=== PATIENT | female | born 1965 | race Caucasian/White ===

== ENCOUNTER → 2019-08-25 | Outpatient (CLI) | payer MEDICARE ==
--- NOTE | 2019-08-25 11:02 | Diagnostic Imaging Report ---
Left ankle at 1049 hours. INDICATION: Ankle pain. 3 views were obtained. There are no prior studies available for comparison. FINDINGS: There is no fracture, dislocation or acute bony abnormality evident. Ankle mortise is not widened and the talar dome is smooth. The soft tissues are unremarkable. IMPRESSION: There is no evidence for an acute bony abnormality. Dictated by: Dictated on workstation # [id number]
[2019-08-25 11:46] LABS: CREATININE SERUM 1.24 MG/DL (0.60-1.30); POTASSIUM 4.2 MMOL/L (3.6-5.0)
[2019-08-25 11:47] LABS: ALBUMIN 3.9 GM/DL (3.2-4.5); BILIRUBIN,TOTAL 0.3 MG/DL (0.1-1.0); TOTAL PROTEIN 6.9 GM/DL (6.4-8.2)
== END ==
LOC: LAB FS 10:42
PROVIDERS: ATTEND Family Medicine
DX: E03.9 Hypothyroidism, unspecified (principal); R41.3 Other amnesia; F33.9 Major depressive disorder, recurrent, unspecified; M25.572 Pain in left ankle and joints of left foot
CPT/HCPCS: 36415; 73610; 80053; 82607; 84443

== ENCOUNTER → 2020-02-14 | Outpatient (CLI) | payer MEDICARE, MEDICAID ==
[2020-02-14 11:06] LABS: BASOPHILS % (AUTO) 0 % (0-10); EOSINOPHILS % (AUTO) 1 % (0-10); HEMATOCRIT 35 % (35-52); HEMOGLOBIN 11.6 G/DL (11.5-16.0); LYMPHOCYTES # (AUTO) 1.9 X 10^3 (1.0-4.0); LYMPHOCYTES % (AUTO) 33 % (12-44); MEAN CORPUSCULAR HEMOGLOBIN 33 PG (25-34); MEAN CORPUSCULAR HGB CONC 33 G/DL (32-36); MEAN CORPUSCULAR VOLUME 98 FL (80-99); MONOCYTES # (AUTO) 0.4 X 10^3 (0.0-1.0); MONOCYTES % (AUTO) 7 % (0-12); NEUTROPHILS # (AUTO) 3.4 X 10^3 (1.8-7.8); NEUTROPHILS % (AUTO) 59 % (42-75); PLATELET COUNT 168 10^3/uL (130-400); RED CELL DISTRIBUTION WIDTH 11.9 % (10.0-14.5); WHITE BLOOD COUNT 5.8 10^3/uL (4.3-11.0)
[2020-02-14 11:26] LABS: ALBUMIN 3.8 GM/DL (3.2-4.5); BILIRUBIN,TOTAL 0.3 MG/DL (0.1-1.0); CALCIUM 9.2 MG/DL (8.5-10.1); CREATININE SERUM 1.17 MG/DL (0.60-1.30); POTASSIUM 4.1 MMOL/L (3.6-5.0); TOTAL PROTEIN 6.6 GM/DL (6.4-8.2)
== END ==
LOC: LAB FS 10:20
PROVIDERS: ATTEND Family Medicine
DX: G43.909 Migraine, unspecified, not intractable, without status migrainosus (principal); M79.2 Neuralgia and neuritis, unspecified
CPT/HCPCS: 36415; 80053; 82607; 84443; 85025

== ENCOUNTER → 2020-06-26 | Outpatient (CLI) | payer MEDICARE, MEDICAID | LOC: LAB FS 09:48 | PROVIDERS: ATTEND Family Medicine | DX: E03.9 Hypothyroidism, unspecified (principal); E53.8 Deficiency of other specified B group vitamins | CPT/HCPCS: 36415; 82607; 84443 ==

== ENCOUNTER 2020-10-14 09:43 | Emergency (ER) | payer MEDICARE, MEDICAID ==
[~2020-10-14] VITALS: Ht 157.4 cm; Wt 59.0 kg
[2020-10-14] MEDS ORDERED: KETOROLAC 30 MG/ML VIAL IVP STA (10:08)
[2020-10-14] MEDS ORDERED: LORazepam INJ 2 MG/ML (ATIVAN) VIAL IVP STA (10:08)
[2020-10-14] MEDS ORDERED: ORPHENADRINE 60 MG/2 ML (NORFLEX) AMP (ED ONLY) IVP STA (10:08)
[2020-10-14 10:10] LABS: HEMATOCRIT 37 % (35-52); HEMOGLOBIN 12.5 G/DL (11.5-16.0); MEAN CORPUSCULAR HEMOGLOBIN 32 PG (25-34); MEAN CORPUSCULAR VOLUME 95 FL (80-99); WHITE BLOOD COUNT 3.9 10^3/uL (4.3-11.0)
[2020-10-14 10:11] LABS: BASOPHILS % (AUTO) 1 % (0-10); EOSINOPHILS # (AUTO) 0.2 10^3/uL (0.0-0.3); EOSINOPHILS % (AUTO) 4 % (0-10); LYMPHOCYTES % (AUTO) 36 % (12-44); MEAN CORPUSCULAR HGB CONC 34 G/DL (32-36); MEAN PLATELET VOLUME 10.3 FL (7.4-10.4); MONOCYTES # (AUTO) 0.3 X 10^3 (0.0-1.0); MONOCYTES % (AUTO) 8 % (0-12); NEUTROPHILS % (AUTO) 51 % (42-75); PLATELET COUNT 233 10^3/uL (130-400)
[2020-10-14 10:12] LABS: LYMPHOCYTES # (AUTO) 1.4 X 10^3 (1.0-4.0)
--- NOTE | 2020-10-14 10:17 | ED General ---
General Chief Complaint: Chest Pain Stated Complaint: CHEST PAIN; SOB Source of Information: Patient History of Present Illness Date Seen by Provider: Oct 14, 2020 Time Seen by Provider: 09:44 Initial Comments 55 yo female presenting to ED with complaint of pressure in chest that has been mostly constant over the last several days as well as pain, burning and itching in left thumb and arm with rash. Her friend and significant other this last week and she has been under extra stress with that. She was staying with him and was kicked out of the shack he was living in after he . She is a very anxious and emotional person and has been more distraught since he . Over the weekend her symptoms have been worse. She had gone to Dr. Mcmillan's office today and one of the nurses have told her that it looked like shingles on her thumb and forearm. Because of her pressure and pain in her chest she was advised to come to the emergency department. She denies any known cardiac history. She cannot say if there is anything that makes her pain and pressure worse. She states it feels similar to needing to burp. She has had some nausea as well. She has been more anxious and upset. She reports that she smokes marijuana to help with pain and migraine headaches and Dr. Mcmillan has told her that she will not prescribe anxiety and pain medication until she has a clean UA. Allergies and Home Medications Allergies Coded Allergies: loratadine (Verified Allergy, Unknown, 10/14/20) Home Medications Azithromycin 250 Mg Tablet, 250 MG PO UD TAKE 2 TABLETS ON DAY ONE THEN TAKE 1 TABLET DAILY FOR FOUR MORE DAYS Prescribed by: BO MENDOZA on 10/14/20 1133 Clonazepam 1 Mg Tablet, 1 MG PO Q8H PRN for ANXIETY Prescribed by: BO ROLDANRT on 10/14/20 1134 Hydrocodone/Acetaminophen 1 Each Tablet, 1 TAB PO Q6H PRN for PAIN-SEVERE (8-10) Prescribed by: BO MENDOZA on 10/14/20 1134 Promethazine HCl 25 Mg Tablet, 12.5 MG PO Q8H PRN for NAUSEA/VOMITING Prescribed by: BO ROLDANRT on 10/14/20 1133 Valacyclovir HCl 1,000 Mg Tablet, 1,000 MG PO Q8H Prescribed by: BO MENDOZA on 10/14/20 1133 Patient Home Medication List Home Medication List Reviewed: Yes Review of Systems Review of Systems Constitutional: No chills, No fever; malaise EENTM: no symptoms reported Respiratory: cough (dry, non productive), short of breath Cardiovascular: chest pain (pressure in chest that has been almost constant and similar to sensation of needing to burp) Gastrointestinal: diarrhea (chronic loose stools since having gallbladder removed), nausea; No vomiting Genitourinary: no symptoms reported Musculoskeletal: other (left arm pain from thumb and index finger up her arm where she has vesicular erythematous rash) Skin: see HPI, rash (erythematous, vesicular rash from her left thumb and index finger running up her forearm and upper arm) Psychiatric/Neurological: Anxiety Past Gbidjrz-Fzvmud-Eebmww Hx Past Med/Social Hx: Reviewed Nursing Past Med/Soc Hx Past Medical History Surgeries: Yes Gallbladder Respiratory: Yes Asthma Neurological: Yes Headaches /Migraines Psychosocial: Yes Anxiety, Depression Physical Exam Vital Signs Vital Signs - First Documented Capillary Refill : Less Than 3 Seconds Height, Weight, BMI Height: '" Weight: lbs. oz. kg; BMI Method: General Appearance: Anxious HEENT: PERRL/EOMI Neck: Full Range of Motion, Normal Inspection, Non Tender, Supple Respiratory: Chest Non Tender, No Accessory Muscle Use, No Respiratory Distress, Decreased Breath Sounds (with poor effort) Cardiovascular: Regular Rate, Rhythm, No Murmur, Normal Peripheral Pulses Gastrointestinal: Normal Bowel Sounds, No Pulsatile Mass, Non Tender, Soft Extremity: Normal Capillary Refill, No Pedal Edema, Other (painful red vesicular rash on left arm from thumb and index finger spreading up forearm and upper arm) Neurologic/Psychiatric: Alert, Oriented x3 Skin: Warm/Dry, Rash (erythematous, vesicular rash on left thumb and index finger, forearm, upper arm. It is painful to touch and also somewhat pruritic.) Progress/Results/Core Measures Suspected Sepsis SIRS Temperature: Pulse: Respiratory Rate: Laboratory Tests 10/14/20 09:55: White Blood Count 3.9L Blood Pressure / Mean: Laboratory Tests 10/14/20 09:55: Creatinine 1.20, INR Comment 0.9, Platelet Count 233, Total Bilirubin 0.4 Results/Orders Lab Results Laboratory Tests Test 10/14/20 09:55 10/14/20 10:45 Range/Units White Blood Count 3.9 L 4.3-11.0 10^3/uL Red Blood Count 3.91 L 4.35-5.85 10^6/uL Hemoglobin 12.5 11.5-16.0 G/DL Hematocrit 37 35-52 % Mean Corpuscular Volume 95 80-99 FL Mean Corpuscular Hemoglobin 32 25-34 PG Mean Corpuscular Hemoglobin Concent 34 32-36 G/DL Red Cell Distribution Width 12.5 10.0-14.5 % Platelet Count 233 130-400 10^3/uL Mean Platelet Volume 10.3 7.4-10.4 FL Immature Granulocyte % (Auto) 0 % Neutrophils (%) (Auto) 51 42-75 % Lymphocytes (%) (Auto) 36 12-44 % Monocytes (%) (Auto) 8 0-12 % Eosinophils (%) (Auto) 4 0-10 % Basophils (%) (Auto) 1 0-10 % Neutrophils # (Auto) 2.0 1.8-7.8 X 10^3 Lymphocytes # (Auto) 1.4 1.0-4.0 X 10^3 Monocytes # (Auto) 0.3 0.0-1.0 X 10^3 Eosinophils # (Auto) 0.2 0.0-0.3 10^3/uL Basophils # (Auto) 0.0 0.0-0.1 10^3/uL Immature Granulocyte # (Auto) 0.0 0.0-0.1 10^3/uL Prothrombin Time 12.8 12.2-14.7 SEC INR Comment 0.9 0.8-1.4 Activated Partial Thromboplast Time 28 24-35 SEC Sodium Level 140 135-145 MMOL/L Potassium Level 3.5 L 3.6-5.0 MMOL/L Chloride Level 109 H 98-107 MMOL/L Carbon Dioxide Level 19 L 21-32 MMOL/L Anion Gap 12 5-14 MMOL/L Blood Urea Nitrogen 16 7-18 MG/DL Creatinine 1.20 0.60-1.30 MG/DL Estimat Glomerular Filtration Rate 46 BUN/Creatinine Ratio 13 Glucose Level 133 H 70-105 MG/DL Calcium Level 9.6 8.5-10.1 MG/DL Corrected Calcium 9.8 8.5-10.1 MG/DL Magnesium Level 2.0 1.6-2.4 MG/DL Total Bilirubin 0.4 0.1-1.0 MG/DL Aspartate Amino Transf (AST/SGOT) 17 5-34 U/L Alanine Aminotransferase (ALT/SGPT) 11 0-55 U/L Alkaline Phosphatase 68 40-136 U/L Troponin I < 0.30 <0.30 NG/ML Pro-B-Type Natriuretic Peptide 222.6 H <75.0 PG/ML Total Protein 7.3 6.4-8.2 GM/DL Albumin 3.8 3.2-4.5 GM/DL Urine Color YELLOW Urine Clarity CLOUDY Urine pH 6.0 5-9 Urine Specific [place] >=1.030 1.016-1.022 Urine Protein NEGATIVE NEGATIVE Urine Glucose (UA) NEGATIVE NEGATIVE Urine Ketones NEGATIVE NEGATIVE Urine Nitrite NEGATIVE NEGATIVE Urine Bilirubin NEGATIVE NEGATIVE Urine Urobilinogen 2.0 < = 1.0 MG/DL Urine Leukocyte Esterase NEGATIVE NEGATIVE Urine RBC (Auto) NEGATIVE NEGATIVE Urine RBC NONE /HPF Urine WBC 0-2 /HPF Urine Squamous Epithelial Cells 25-50 H /HPF Urine Crystals NONE /LPF Urine Bacteria MODERATE H /HPF Urine Casts NONE /LPF Urine Mucus NEGATIVE /LPF Urine Culture Indicated NO Urine Opiates Screen NEGATIVE NEGATIVE Urine Oxycodone Screen NEGATIVE NEGATIVE Urine Methadone Screen NEGATIVE NEGATIVE Urine Propoxyphene Screen NEGATIVE NEGATIVE Urine Barbiturates Screen NEGATIVE NEGATIVE Ur Tricyclic Antidepressants Screen NEGATIVE NEGATIVE Urine Phencyclidine Screen NEGATIVE NEGATIVE Urine Amphetamines Screen NEGATIVE NEGATIVE Urine Methamphetamines Screen NEGATIVE NEGATIVE Urine Benzodiazepines Screen POSITIVE H NEGATIVE Urine Cocaine Screen NEGATIVE NEGATIVE Urine Cannabinoids Screen POSITIVE H NEGATIVE My Orders Orders - BO MENDOZA MD Ekg Tracing (10/14/20 09:46) Cbc With Automated Diff (10/14/20:47) Magnesium (10/14/20 09:47) Chest 1 View Ap/Pa Only (10/14/20 09:47) Comprehensive Metabolic Panel (10/14/20:47) Protime With Inr (10/14/20:47) Partial Thromboplastin Time (10/14/20:47) O2 (10/14/20:47) Monitor-Rhythm Ecg Trace Only (10/14/20:47) Ed Iv/Invasive Line Start (10/14/20 09:47) Troponin I Fs (10/14/20 09:47) Probnp Fs (10/14/20 09:47) Lorazepam Injection (Ativan Injection) (10/14/20 10:08) Ketorolac Injection (Toradol Injection) (10/14/20 10:08) Orphenadrine Inj (Ed Only) (Norflex Inje (10/14/20 10:08) Ua Culture If Indicated (10/14/20 10:17) Drug Screen Stat (Urine) (10/14/20 10:17) Hydrocodone/Apap 5/325 Tablet (Lortab 5 (10/14/20 11:22) Ondansetron Oral Dissolve Tab (Zofran (10/14/20 11:22) Vital Signs/I&O 10/14/20 10/14/20 10/14/20 09:46 09:46 11:37 Temp 36.6 36.6 Pulse 88 72 Resp 10 16 B/P (MAP) 132/77 (95) 133/75 (95) Pulse Ox 99 98 O2 Delivery Room Air Room Air Room Air Capillary Refill : Less Than 3 Seconds Progress Note #1: Progress Note Obtain electrocardiogram since she is complaining of chest pain. Placed on telemetry monitoring to evaluate her cardiac rhythm and monitor while in the emergency department for arrhythmias or ST elevation or ectopy. Check labs with chest x-ray as well as urinalysis and urine drug screen since patient reports that the people that she was hanging around with were using methamphetamines, but she denies using anything but marijuana for over 10 years. Initial vital signs all appear stable without any significant abnormality. She is in a sinus rhythm on telemetry monitoring without acute ST elevation or ectopy. Her electrocardiogram shows sinus rhythm without ST elevation. Her left arm does demonstrate a rash with vesicles and appears similar to a herpetic or shingles rash. We will try Toradol and Norflex for pain as well as a dose of Ativan to see if that helps with her anxiety. Progress Note #2: Time: 10:43 Progress Note CBC shows WBC count just below normal at 3.9, with a normal differential. Normal coags. Chemistry with K just below normal at 3.5. Cr at 1.2. Chest xray is showing bilateral basilar opacities concerning for possible infiltrates. Pt continues to saturate 99-100% on room air. Troponin negative at <0.3 and considering she has had pain for more than 6 hours this would be negative for my ocardial infarction. d/w Dr. Mcmillan and she states pt missed appt on Wednesday with her in clinic. She was agreeable with plan to treat with antiviral, antibiotic and was ok with having short course of medicine for anxiety/pain with shingles but would like pt to follow up with her this week in clinic. Will let pt know. Progress Note #3: Progress Note After reviewing discharge plan with pt and her grand-daughter, the grand- daughter spoke with her mom, patient's daughter. She is a nurse and was concerned that the patient's significant other that just may have had Covid and wants the pt tested for Covid. However they want a rapid test done so they know right away. Since that is not available in our ED they will go to Urgent care to have it done after discharge. I did advise pt and grand-daughter that the CXR and tests were not showing signs of Covid. They still insisted to have the testing done since I could not 100% assure them the pt does not have Covid. ECG Initial ECG Impression Date: Oct 14, 2020 Initial ECG Impression Time: 09:49 Initial ECG Rate: 75 Initial ECG Rhythm: Normal Sinus Initial ECG Comparisson: No Previous ECG Available Comment Normal sinus rhythm with a heart rate of [address] elevation. SD interval 165 ms. QT interval 370 ms with a QTc interval 414 ms. There is no prior tracing available for comparison. Diagnostic Imaging Diagonstic Imaging: Xray Plain Films/CT/US/NM/MRI: chest Comments [facility]. [place], [place] NAME: ANIBAL NORTON [facility] REC#: [id number] PT STATUS: REG ER : 1965 PHYSICIAN: BO MENDOZA MD ADMIT DATE: 10/14/20/ER FS Draft Date of Exam:10/14/20 CHEST 1 VIEW AP/PA ONLY HISTORY: Chest pain, shortness of breath. COMPARISON: None. TECHNIQUE: Frontal view of the chest. FINDINGS: There are bibasilar airspace opacities. No pleural effusion or pneumothorax is seen. The cardiac silhouette is normal in size. IMPRESSION: 1. Bibasilar airspace opacities, concerning for pneumonia in the appropriate clinical setting. Dictated on workstation # [id number] Dict: 10/14/20 1013 Trans: 10/14/20 1020 AS6 [id number] Interpreted by: ЕКАТЕРИНА MALHOTRA MD Electronically signed by: Departure Impression Primary Impression: Shingles rash Qualified Codes: B02.9 - Zoster without complications Additional Impressions: Anxiety Stress reaction Basal pneumonia Nausea Disposition: 01 HOME, SELF-CARE Condition: Stable Departure-Patient Inst. Decision time for Depature: 11:25 Referrals: TOYA MCMILLAN MD (PCP/Family) Primary Care Physician Patient Instructions: Pneumonia, Adult ED, Anxiety, Adult ED, Stress, Shingles (DC) Add. Discharge Instructions: Take the full course of antibiotics to treat for possible early pneumonia in base of your lungs. You could take over the counter plain Mucinex along with drinking plenty of water to help loosen any congestion in your lungs to help you cough up mucus and clear your lungs. Take the Valacyclovir (Valtrex) to treat for shingles rash and pain on your arm. Follow up with Dr. Mcmillan about this as well You may use the pain medicine and anxiety medicine to try and help with your s ymptoms as well but make sure to drink plenty of water and consider taking a laxative if you have to use the pain medicine as narcotics can cause constipation. All discharge instructions reviewed with patient and/or family. Voiced understanding. Scripts Promethazine HCl (Promethazine Tablet) 25 Mg Tablet 12.5 MG PO Q8H PRN for NAUSEA/VOMITING for 6 Days, #9 TAB 0 Refills Prov: BO MENDOZA MD 10/14/20 Clonazepam (Clonazepam) 1 Mg Tablet 1 MG PO Q8H PRN for ANXIETY for 3 Days, #9 TAB 0 Refills Prov: BO MENDOZA MD 10/14/20 Hydrocodone/Acetaminophen (Hydrocodone-Acetamin 5-325 mg) 1 Each Tablet 1 TAB PO Q6H PRN for PAIN-SEVERE (8-10) for 3 Days, #12 TAB 0 Refills Prov: BO MENDOZA MD 10/14/20 Valacyclovir HCl (Valacyclovir) 1,000 Mg Tablet 1000 MG PO Q8H for shingles for 7 Days, #21 TAB 0 Refills Prov: BO MENDOZA MD 10/14/20 Azithromycin (Azithromycin) 250 Mg Tablet 250 MG PO UD, #6 TAB TAKE 2 TABLETS ON DAY ONE THEN TAKE 1 TABLET DAILY FOR FOUR MORE DAYS Prov: BO MENDOZA MD 10/14/20 BO MENDOZA MD Oct 14, 2020 10:17
--- NOTE | 2020-10-14 10:20 | Diagnostic Imaging Report ---
HISTORY: Chest pain, shortness of breath. COMPARISON: None. TECHNIQUE: Frontal view of the chest. FINDINGS: There are bibasilar airspace opacities. No pleural effusion or pneumothorax is seen. The cardiac silhouette is normal in size. IMPRESSION: 1. Bibasilar airspace opacities, concerning for pneumonia in the appropriate clinical setting. Dictated by: Dictated on workstation # [id number]
[2020-10-14 10:24] LABS: INR 0.9 (0.8-1.4); PROTHROMBIN TIME PATIENT 12.8 SEC (12.2-14.7)
[2020-10-14 10:33] LABS: POTASSIUM 3.5 MMOL/L (3.6-5.0)
[2020-10-14 10:34] LABS: BILIRUBIN,TOTAL 0.4 MG/DL (0.1-1.0); CALCIUM 9.6 MG/DL (8.5-10.1); CREATININE SERUM 1.2 MG/DL (0.60-1.30); TOTAL PROTEIN 7.3 GM/DL (6.4-8.2)
[2020-10-14 10:35] LABS: ALBUMIN 3.8 GM/DL (3.2-4.5)
[2020-10-14] MEDS ORDERED: ONDANSETRON 4 MG (ZOFRAN) ORAL DISSOLVE TAB PO STA (11:22)
[2020-10-14] MEDS ORDERED: HYDROcodone/APAP 5 MG/325 MG (LORTAB) TAB PO STA (11:22)
[2020-10-14] MEDS ORDERED: AZIT250T12 PO (11:33)
[2020-10-14] MEDS ORDERED: ACHD5005 PO (11:33)
[2020-10-14] MEDS ORDERED: PROM25TA14 PO (11:33)
[2020-10-14] MEDS ORDERED: VALA10007 PO (11:33)
[2020-10-14] MEDS ORDERED: CLON1TAB13 PO (11:33)
[2020-10-14 11:37] VITALS: BP 133/75
[2020-10-14 11:42] LABS: BACTERIA,URINE MODERATE /HPF; BILIRUBIN,URINE NEGATIVE (NEGATIVE); CLARITY,URINE CLOUDY; COLOR,URINE YELLOW; GLUCOSE, URINE (UA) NEGATIVE (NEGATIVE); KETONES,URINE NEGATIVE (NEGATIVE); LEUKOCYTE ESTERASE ,URINE NEGATIVE (NEGATIVE); NITRITE,URINE NEGATIVE (NEGATIVE); PROTEIN,URINE NEGATIVE (NEGATIVE); SQUAMOUS EPITHELIAL CELL,UR 25-50 /HPF; WBC,URINE 0-2 /HPF
[2020-10-14 11:43] LABS: AMPHETAMINE SCREEN, URINE NEGATIVE (NEGATIVE); BARBITURATE SCREEN URINE NEGATIVE (NEGATIVE); BENZODIAZEPINES SCREEN URINE POSITIVE (NEGATIVE); CANNABINOID SCREEN, URINE POSITIVE (NEGATIVE); COCAINE SCREEN URINE NEGATIVE (NEGATIVE); METHADONE STAT NEGATIVE (NEGATIVE); METHAMPHETAMINE SCREEN URINE S NEGATIVE (NEGATIVE); OPIATE SCREEN URINE NEGATIVE (NEGATIVE); OXYCODONE STAT NEGATIVE (NEGATIVE); PROPOXYPHENE STAT NEGATIVE (NEGATIVE); TRICYCLIC ANTIDEPRESSANTS SCRE NEGATIVE (NEGATIVE)
== END 2020-10-14 11:40 | disposition home or self-care (01) ==
LOC: EDUNIT# 09:43 → ER FS 09:46
DX: B02.9 Zoster without complications (principal); F41.9 Anxiety disorder, unspecified; F43.9 Reaction to severe stress, unspecified; J18.8 Other pneumonia, unspecified organism; R11.0 Nausea; Z88.8 Allergy status to other drugs, medicaments and biological substances
CPT/HCPCS: 36415; 71045; 80053; 80306; 81000; 83735; 83880; 84484; 85025; 85610; 85730; 93041

== ENCOUNTER → 2021-01-03 | Outpatient (CLI) | payer MEDICARE, MEDICAID ==
[~2021-01-03] MED LIST: ACHD5005 PO; AZIT250T12 PO; CLON1TAB13 PO; PROM25TA14 PO; VALA10007 PO
[2021-01-03 11:24] LABS: BILIRUBIN,TOTAL 0.4 MG/DL (0.1-1.0); CALCIUM 9.3 MG/DL (8.5-10.1); CREATININE SERUM 0.99 MG/DL (0.60-1.30); POTASSIUM 4.3 MMOL/L (3.6-5.0)
[2021-01-03 11:25] LABS: ALBUMIN 3.9 GM/DL (3.2-4.5); TOTAL PROTEIN 6.7 GM/DL (6.4-8.2)
== END ==
LOC: LAB FS 10:28
PROVIDERS: ATTEND Family Medicine
DX: E03.9 Hypothyroidism, unspecified (principal); E53.8 Deficiency of other specified B group vitamins; E78.5 Hyperlipidemia, unspecified
CPT/HCPCS: 36415; 80053; 80061; 82607; 84443

== ENCOUNTER → 2021-01-06 | Outpatient (CLI) | payer MEDICARE, MEDICAID | LOC: LAB FS 09:15 | PROVIDERS: ATTEND Family Medicine | DX: R73.9 Hyperglycemia, unspecified (principal) | CPT/HCPCS: 36415; 83036 ==

== ENCOUNTER → 2021-06-09 | Outpatient (CLI) | payer MEDICARE, MEDICAID | LOC: LAB FS 11:19 | PROVIDERS: ATTEND Registered Nurse Emergency | DX: E03.9 Hypothyroidism, unspecified (principal) | CPT/HCPCS: 36415; 84443 ==

== ENCOUNTER → 2021-08-28 | Outpatient (CLI) | payer MEDICARE, MEDICAID ==
[2021-08-28 12:41] LABS: HEMATOCRIT 42 % (35-52); MEAN CORPUSCULAR HEMOGLOBIN 31 pg (25-34)
[2021-08-28 12:42] LABS: MEAN CORPUSCULAR HGB CONC 34 g/dL (32-36); MEAN CORPUSCULAR VOLUME 93 fL (80-99); MEAN PLATELET VOLUME 10.2 fL (9.0-12.2); PLATELET COUNT 273 10^3/uL (130-400)
[2021-08-28 12:46] LABS: BASOPHILS % (AUTO) 0 % (0-10); EOSINOPHILS % (AUTO) 4 % (0-10); LYMPHOCYTES % (AUTO) 27 % (12-44); MONOCYTES % (AUTO) 5 % (0-12); NEUTROPHILS % (AUTO) 63 % (42-75)
[2021-08-28 12:47] LABS: EOSINOPHILS # (AUTO) 0.4 10^3/uL (0.0-0.3); LYMPHOCYTES # (AUTO) 2.7 X 10^3 (1.0-4.0); MONOCYTES # (AUTO) 0.5 X 10^3 (0.0-1.0); NEUTROPHILS # (AUTO) 6.4 X 10^3 (1.8-7.8)
[2021-08-28 13:20] LABS: ALBUMIN 3.7 GM/DL (3.2-4.5); BILIRUBIN,TOTAL 0.5 MG/DL (0.1-1.0); CALCIUM 9.8 MG/DL (8.5-10.1); CREATININE SERUM 1.37 MG/DL (0.60-1.30); POTASSIUM 4.7 MMOL/L (3.6-5.0); TOTAL PROTEIN 7.1 GM/DL (6.4-8.2)
--- NOTE | 2021-08-28 18:19 | Diagnostic Imaging Report ---
INDICATION: Cough and shortness of breath for one week. TIME OF EXAM: 12:31 p.m. COMPARISON: Comparison is made with prior chest from 10/14/2020. FINDINGS: Heart size is normal. There are infiltrates in both lung bases. No effusion or pneumothorax is detected. IMPRESSION: Bibasilar pulmonary infiltrates. Dictated by: Dictated on workstation # [id number]
== END ==
LOC: LAB FS 12:16
PROVIDERS: ATTEND Registered Nurse Emergency
DX: R91.8 Other nonspecific abnormal finding of lung field (principal); R06.00 Dyspnea, unspecified; R05.9 Cough, unspecified; R06.02 Shortness of breath
CPT/HCPCS: 36415; 71046; 80053; 85025

== ENCOUNTER 2022-03-25 06:19 | Outpatient (CLI) | payer MEDICARE, MEDICAID ==
[~2022-03-25] VITALS: Ht 159.4 cm; Wt 72.6 kg
[2022-03-25] MEDS ORDERED: HYDR-700 PO (12:34)
[2022-03-25] MEDS ORDERED: ALBU18HF2 INH (12:34)
[2022-03-25] MEDS ORDERED: ESTR1TAB27 PO (12:34)
[2022-03-25] MEDS ORDERED: FLUO60TA PO (12:34)
[2022-03-25] MEDS ORDERED: UMEC1BLS IH (12:34)
[2022-03-25] MEDS ORDERED: PROP20TA5 PO (12:34)
[2022-03-25] MEDS ORDERED: LEVO125C4 PO (12:34)
[2022-03-25] MEDS ORDERED: NORT25CA PO (12:34)
[2022-03-25] MEDS ORDERED: MELO15TA39 PO (12:34)
[2022-03-25] MEDS ORDERED: UBRO100T PO (12:34)
[2022-03-25] MEDS ORDERED: GABA800T10 PO (12:34)
== END 2022-03-25 12:36 | disposition home or self-care (01) ==
LOC: PREOP 06:19
PROVIDERS: ATTEND Surgery
DX: Z01.818 Encounter for other preprocedural examination (principal)

== ENCOUNTER 2022-04-07 10:43 | Day surgery (SDC) | payer MEDICARE, MEDICAID ==
[~2022-04-07] VITALS: Ht 159 cm; Wt 72.6 kg
[~2022-04-07 10:43] MED LIST changes: +ALBU18HF2 INH; +ESTR1TAB27 PO; +FLUO60TA PO; +GABA800T10 PO; +HYDR-700 PO; +LEVO125C4 PO; +MELO15TA39 PO; +NORT25CA PO; +PROP20TA5 PO; +UBRO100T PO; +UMEC1BLS IH
[2022-04-07] MEDS ORDERED: LACTATED RINGERS 1,000 ML IV STA (10:51)
[2022-04-07] MEDS ORDERED: HURRICAINE EXT TUBE (BENZOCAINE) XX PRN (11:00)
[2022-04-07 11:10] VITALS: BP 124/70
--- NOTE | 2022-04-07 12:36 | Progress Note-Pre Operative ---
Pre-Operative Progress Note Date of Available H&P: Mar 16, 2022 Date H&P Reviewed: Apr 07, 2022 Time H&P Reviewed: 12:35 History & Physical: H&P Reviewed, Patient Examed, No changes noted Pre-Operative Diagnosis: dysphagia, hx polyps DEION ERWIN DO Apr 07, 2022 12:36
[2022-04-07] MEDS ORDERED: MIDAZOLAM 2 MG/2 ML (VERSED) VIAL ONE (13:12)
[2022-04-07] MEDS ORDERED: PROPOFOL INJECTION 50 ML IV ONE ×2 (13:12→13:39)
[2022-04-07 13:56] VITALS: BP 91/54
--- NOTE | 2022-04-07 13:58 | Progress Note-Post Operative ---
Post-Operative Progess Note Surgeon (s)/Network And Threat Support Specialist (s) Surgeon DEION ERWIN DO Network And Threat Support Specialist: na Pre-Operative Diagnosis dysphagia, hx polyps Post-Operative Diagnosis Gastritis Duodenalitis/Ulcerations Hiatal Hernia appendiceal orrifice mucosal changes sigmoid polyp Procedure & Operative Findings Date of Procedure 04/07/22 Procedure Performed/Findings EGD c Biopsies Colonoscopy c Cold Biopsies and Hot Biopsy polypectomy Anesthesia Type per REHAB SERVICES AIDE Estimated Blood Loss Estimated blood loss (mL): none Specimens/Packing Specimens Removed duodenum, antrum, ge, appendiceal orifice, sigmoid polyp DEION ERWIN DO Apr 07, 2022 13:58
[2022-04-07] MEDS ORDERED: PANT40TA2 PO (14:00)
--- NOTE | 2022-04-07 14:00 | Discharge Inst-Simple/Standard ---
Discharge Inst-Standard Patient Instructions/Follow Up Plan of Care/Instructions/FU: 2 weeks Yumiko Activity as Tolerated: Yes Discharge Diet: Regular Diet DEION ERWIN DO Apr 07, 2022 14:00
[2022-04-07 14:01] VITALS: BP 87/49
[2022-04-07 14:06] VITALS: BP 111/55
[2022-04-07 14:10] VITALS: BP 111/55
--- NOTE | 2022-04-07 14:23 | Anesthesia-General Post-Op ---
MAC Patient Condition Mental Status/LOC: Same as Preop Cardiovascular: Satisfactory Nausea/Vomiting: Absent Respiratory: Satisfactory Pain: Controlled Complications: Absent Post Op Complications Complications None Follow Up Care/Instructions Patient Instructions None needed. Anesthesiology Discharge Order Discharge Order Patient is doing well, no complaints, stable vital signs, no apparent adverse anesthesia problems. No complications reported per nursing. AROLDO WALLACE CRNA Apr 07, 2022 14:23
[2022-04-07 14:30] VITALS: BP 111/55
--- NOTE | 2022-04-07 18:42 | OPERATIVE REPORT ---
DATE OF SERVICE: 04/07/2022 PREOPERATIVE DIAGNOSES: Dysphagia, history of polyps. POSTOPERATIVE DIAGNOSES: Gastritis, duodenitis with slight ulcerations, hiatal hernia, appendiceal orifice, mucosal changes, and sigmoid polyp. PROCEDURES PERFORMED: EGD with biopsies, colonoscopy with cold biopsy of the appendiceal orifice and hot biopsy polypectomy of the sigmoid colon polyp. SURGEON: Deion Calderon DO. ANESTHESIA: Per KETTLE GIRL. ESTIMATED BLOOD LOSS: None. COMPLICATIONS: None. SPECIMENS: Duodenum, antrum, GE junction, appendiceal, and orifice sigmoid polyp. INDICATIONS FOR PROCEDURE: The patient is a 56-year-old female with dysphagia symptoms and history of polyps. She understands risks and benefits of the procedure and wished to proceed. Consent was signed in the chart. DESCRIPTION OF PROCEDURE: The patient was taken to the endoscopy suite and placed in the left lateral recumbent position. Timeout was performed. Scope was inserted in mouth, down the esophagus, stomach and into the duodenum without difficulty. There were no polyps, masses or ulcerations in the second portion of the duodenum. In the first portion, there are some changes of duodenitis with some appearance of small ulcerations. Biopsy of this area was obtained. Scope was then slowly retracted back that demonstrated some gastritis. In the antral area, biopsy was obtained. No polyps, masses or ulcerations. Scope was retroflexed noting a small hiatal hernia, no other pathology. Scope was returned to its normal position, slowly withdrawn to the distal esophagus. Biopsy of the GE junction was obtained. Scope was then slowly retracted back until completely removed noting no other pathology. Digital rectal exam was performed. No palpable polyps, masses or ulcerations. Scope was inserted in the rectum and advanced all the way to cecum with minimal difficulty. Prep was adequate. At the appendiceal orifice, mucosal change was present, cold biopsies were obtained. Scope was then slowly retracted back. No other polyps, masses or ulcerations within the cecum, ascending, transverse, descending colon. In the sigmoid colon, another polyp was present, which hot biopsy polypectomy was performed. Scope was then continuously and slowly retracted back in the rectum, where it was also retroflexed noting no other pathology. Scope was returned to its normal position, slowly withdrawn until completely removed. The patient tolerated the procedure well without any complications. She was taken to the recovery room in stable condition. RECOMMENDATIONS: The patient will need a repeat colonoscopy in five years unless she is having difficulty prior to that. We will also start on Protonix 40 mg daily. We will follow up on biopsies in a couple of weeks in the office. Job ID: [id number] DocumentID: [id number] Dictated Date: 04/07/2022 14:03:41 Plaster Pattern Caster Date: 04/07/2022 18:41:54 Dictated By: DEION CALDERON DO
== END 2022-04-07 14:40 | disposition home or self-care (01) ==
LOC: ENDO 10:43
PROVIDERS: ATTEND Surgery
DX: D12.0 Benign neoplasm of cecum (principal); D12.5 Benign neoplasm of sigmoid colon; K20.90 Esophagitis, unspecified without bleeding; K31.89 Other diseases of stomach and duodenum; K44.9 Diaphragmatic hernia without obstruction or gangrene; K29.80 Duodenitis without bleeding; Z87.891 Personal history of nicotine dependence

== ENCOUNTER → 2022-06-18 | Outpatient (CLI) | payer MEDICARE, MEDICAID ==
[~2022-06-18] MED LIST changes: +PANT40TA2 PO
== END ==
LOC: LAB FS 14:14
PROVIDERS: ATTEND Family Medicine
DX: Z23 Encounter for immunization (principal); E03.9 Hypothyroidism, unspecified; M25.561 Pain in right knee; M54.2 Cervicalgia; G43.909 Migraine, unspecified, not intractable, without status migrainosus; J44.9 Chronic obstructive pulmonary disease, unspecified; R13.10 Dysphagia, unspecified
CPT/HCPCS: 36415; 84443

== ENCOUNTER → 2022-08-10 | Outpatient (CLI) | payer MEDICARE, MEDICAID | LOC: LAB FS 12:32 | PROVIDERS: ATTEND Family Medicine | DX: E03.9 Hypothyroidism, unspecified (principal) | CPT/HCPCS: 36415; 84443 ==

== ENCOUNTER → 2022-12-28 | Outpatient (CLI) | payer MEDICARE, MEDICAID ==
--- NOTE | 2022-12-28 17:34 | Diagnostic Imaging Report ---
Indication: Left hand injury with contusion and pain AP, oblique and lateral views of left hand are obtained. FINDINGS: No acute fracture or dislocation is identified. No abnormal lytic or sclerotic focus is seen, and there is no radiopaque foreign body. IMPRESSION: No acute abnormality. Dictated by: Dictated on workstation # [id number]
== END ==
LOC: RAD FS 14:46
PROVIDERS: ATTEND Family Medicine
DX: S60.222A Contusion of left hand, initial encounter (principal)
CPT/HCPCS: 73130